=== PATIENT | female | born 1950 | race African-American/Black ===

== ENCOUNTER 2024-12-20 23:37 | Emergency (ER) | payer MEDICAID, OTHER ==
[~2024-12-20] VITALS: Ht 160 cm; Wt 54.4 kg
[~2024-12-20 23:37] MED LIST: ATOR40TA PO; DIVA125C5 PO; FAMO20TA8 PO; GABA-532 PO; HYDR-4075 PO
[2024-12-21] MEDS ORDERED: GABA-532 PO (00:09)
[2024-12-21] MEDS ORDERED: PRED50TA PO (00:09)
[2024-12-21] MEDS ORDERED: predniSONE 20 MG TABLET ONE (00:12)
[2024-12-21] MEDS ORDERED: GABAPENTIN 100 MG CAPSULE ONE (00:12)
[2024-12-21] MEDS: GABAPENTIN 100 MG CAPSULE PO ONE (00:22)
[2024-12-21] MEDS: predniSONE 50 MG TABLET PO ONE (00:22)
[2024-12-21 01:36] VITALS: BP 120/65; TEMP 98; O2SAT 98
== END 2024-12-21 01:37 | disposition home or self-care (01) ==
LOC: ER 23:42
DX: G50.0 Trigeminal neuralgia (principal); I10 Essential (primary) hypertension; B02.9 Zoster without complications; Z79.52 Long term (current) use of systemic steroids; Z79.899 Other long term (current) drug therapy
CPT/HCPCS: 99283; J7512

== ENCOUNTER 2024-12-28 22:34 | Emergency (ER) | payer OTHER ==
[~2024-12-28] VITALS: Ht 160 cm; Wt 61.2 kg
[~2024-12-28 22:34] MED LIST changes: +PRED50TA PO
[2024-12-28 23:04] VITALS: BP 127/78; TEMP 98.2; O2SAT 98
[2024-12-28] MEDS ORDERED: TOBR5DRO48 LEFTEYE (23:08)
[2024-12-28] MEDS ORDERED: ACETAMINOPHEN 325 MG TABLET ONE ×2 (23:08→23:11)
[2024-12-28] MEDS: ACETAMINOPHEN 325 MG TABLET PO ONE (23:12)
== END 2024-12-29 00:02 ==
LOC: ER 22:38
DX: H10.9 Unspecified conjunctivitis (principal); R51.9 Headache, unspecified; I10 Essential (primary) hypertension; Z79.52 Long term (current) use of systemic steroids; Z79.899 Other long term (current) drug therapy; Z87.09 Personal history of other diseases of the respiratory system; Z86.59 Personal history of other mental and behavioral disorders